=== PATIENT | male | born 1960 | race Caucasian/White ===

== ENCOUNTER 2022-02-22 10:01 | Outpatient (CLI) | payer OTHER, SELFPAY | END 2022-02-22 10:02 | disposition home or self-care (01) | LOC: NPINS 10:02 → LAB 10:36 | PROVIDERS: PCP Family Medicine; Visit Provider Orthopaedic Surgery Sports Medicine | DX: Z13.9 Encounter for screening, unspecified (principal) | CPT/HCPCS: 36415; 86850; 86900; 86901 ==

== ENCOUNTER 2022-02-24 10:46 | Day surgery (SDC) | payer OTHER, SELFPAY ==
[2022-02-24] VITALS (27 sets, daily range): BP systolic 89–125; BP diastolic 58–93; PULSE 51–74; RESP 12–20; TEMP 35.6–36.7; O2SAT 95–100; BMI 29.2
[2022-02-24] MEDS: LACTATED RINGERS 1000 ML 1,000 ML 100 ML IV (09:30)
[2022-02-24] MEDS: CEFAZOLIN 2 GM in 0.9 % SODIUM CHLORIDE Mini-bag 100 ML IVPB (11:49)
[2022-02-24] MEDS: SODIUM CHLORIDE 0.9 % (FLUSH) 10 ML SYRINGE IVF (11:59)
[2022-02-24] MEDS: ETHYL CHLORIDE 1 APPLICATION 1 APPLIC TOPICAL (11:59)
[2022-02-24] MEDS: ACETAMINOPHEN 500 MG TABLET 1000 MG PO ×3 (13:35→23:41)
[2022-02-24] MEDS: OXYCODONE (CR) 10 MG TAB.ER.12H PO (13:35)
[2022-02-24] MEDS: CELECOXIB 200 MG CAPSULE PO ×2 (13:35→21:27)
[2022-02-24] MEDS: MIDAZOLAM HCL 1 MG/ML inj IVP (13:40)
[2022-02-24] MEDS: fentaNYL 100 MCG/2 ML inj IVP (13:40)
--- NOTE | 2022-02-24 13:47 | SUR.PREOP ---
TIME?OUT:?1337, right hip PT/RN/MDA?VERIFICATION?OF?SURGICAL?SITE,?PROCEDURE,?AND?CONSENT OBTAINED?PRIOR?TO?INVASIVE?PROCEDURE.
--- NOTE | 2022-02-24 14:06 | CRLHL7_ITS ---
For Patients: As a result of the Cures Act, medical imaging exams and procedure reports are released immediately into your electronic medical record. You may view this report before your referring provider. If you have questions, please contact your health care provider. Indication: Hip replacement surgery Technique: AP hip fluoroscopic image. Fluoroscopy time 53.1 seconds. Findings/Impression: Hardware from a right total hip arthroplasty is in satisfactory position. Dictated by Ruddy Rodriguez MD @ 02/25/2022 10:02:18 AM (Electronically Signed)
[2022-02-24] MEDS: TRANEXAMIC ACID 100 MG/ML INJ 1000 MG IV (14:49)
--- NOTE | 2022-02-24 14:49 | P.NB_ITS ---
Nerve Block Nerve Block Date Seen: 02/24/22 Type of block requested by surgeon for post-operative analgesia: ISAIAH/LFCN Side: right Time out performed: Yes Verification of patient name: Yes Verification of date of : Yes Site marking: site marked Name of person performing procedure: Bladimir Continuous monitoring Was continuous monitoring of O2 sat, B/P, monitor car operator, recorded every 15 minutes?: Yes Procedure Checklist: sterile prep, needles and gloves Ultrasound guided. Images saved: Yes Medications given in 5ml increments after negative aspiration: Ropivicaine %: 0.5 mL: 30 Needle gauge: 20 Decadron (mg): 10 Precedex (mcg): 25 Patient tolerated procedure well: Yes Additional comments: Needle noted adjacent to nerve Block Charges Block Charge (with Pro Fee): Other Periph Nerve Block Use of Ultrasound Machine for Block: Yes- US Guidance/pain block
--- NOTE | 2022-02-24 16:32 | P.ORPRC_ITS ---
Procedure Note Date of procedure: 02/24/22 Procedure: PREOPERATIVE DIAGNOSIS: 1. Right hip osteoarthritis, severe, primary POSTOPERATIVE DIAGNOSIS: 1. Right hip osteoarthritis, severe, primary PROCEDURE: 1. Right total hip arthroplasty-anterior approach 2. 70957 - intraoperative fluoroscopy up to 1 hour. SURGEON: Kevin Hooper MD. ETHANOL OPERATIONS MANAGER: Gonzalo Smith PA-C; URMILA Trujillo - Of note, a skilled email marketing assistant was critical for this case to aid in patient positioning, tissue retraction, limb manipulation/positioning, and closure. ANESTHESIA: Spinal anesthetic EBL: 300 mL IMPLANTS: DePuy J&J uncemented total hip [place] cup size 52, hole eliminator, +4 neutral liner Actis stem, standard offset, size 7 +5 mm ceramic 36 mm head COMPLICATIONS: None evident INDICATIONS: The patient is a pleasant 61-year-old male who has experienced severe right hip pain and difficulty bearing weight. Workup included x-rays which revealed severe osteoarthrosis in the hip. Given the deformity, the dysfunction, and the pain, as well as the failure of nonoperative management, recommendation was made for surgery. FINDINGS: Full-thickness chondral loss throughout the femoral head broadly. Large effusion upon entering the joint. Osteophytes around the perimeter of the acetabulum noted as well. DESCRIPTION OF PROCEDURE: Following a thorough discussion of risks, benefits, and alternatives consent was obtained and the right hip was marked. The patient was brought to the operating room and placed supine on the operating table. Induction of anesthesia was undertaken. 2 g IV Ancef and 1 g tranexamic acid was administered within 1 hr of incision preoperatively. Proper time-out was performed identifying proper patient, site, procedure. The operative extremity was prepped and draped in the appropriate sterile fashion using ChloraPrep after the patient was positioned on the [place] table with head in neutral alignment and all bony prominences well padded. C-arm fluoroscopic imaging was utilized to confirm proper pelvis rotation and position, and to get true AP films of both the contralateral left, and the affected right hip. This is for comparison. A longitudinal incision was made starting approximately 1 cm distal to the ASIS, and 3-4 cm lateral. The incision was extended distally aiming toward the lateral border the patella. Sharp incision through skin and bovie cautery through the subcutaneous tissue allowed identification of the TFL fascia. This was sharply divided, and the fascia bluntly released from the muscle fibers as we dissected medial. Upon coming to the medial border, we were able to retract the TFL laterally, and penetrated the deeper fascia and identify the crossing circumflex vessels. These were ligated/cauterized. The rectus was elevated from the capsule, and retractors placed laterally and medially along the femoral neck to help with visualization of the capsule. We then performed an inverted T capsulotomy. The capsule was tagged for later repair. Retractors were placed inside the capsule. The femoral neck was visualized after releasing medially down to the lesser trochanter, along the saddle laterally, and up onto the acetabulum. The femoral neck cut was made in line with our preoperative templating. The head was removed in a single piece, and sized. We turned our attention to acetabular preparation. Initially, the labrum was resected from around the perimeter, the pulvinar was excised, allowing us to visualize the false wall. We started the reaming with a 43 mm reamer. This was medialized down to the true wall. We then enlarged our reamers sequentially up to one size less than the selected cup size. We trialed at the same size and found it to have an excellent fit. The selected cup was then opened, inserted, and impacted in line with the goal of 40? of abduction, and 20-25? of anteversion. This was confirmed on C-arm fluoroscopic imaging to be in the appropriate/goal position. Once the cup was placed we placed a hole eliminator and a liner consistent with preop planning. Attention was turned to the femoral preparation. The limb was extended, externally rotated, and adducted. The posteromedial capsule was released, as retractors were placed allowing excellent access to the proximal femur. Initial ly a box bender was followed by canal finder followed by various broaches. We broached sequentially up to the size noted above, found it to have excellent rotational control, and trialing various heads and necks, revealed that appropriate neck offset, and the above noted head size provided the greatest stability, and mormonism of length, and offset. C-arm fluoroscopic imaging confirmed position of the stem, as well as leg lengths, which were compared with the pre procedure all fluoroscopic images. Trial implants were removed, the real femoral stem inserted, as was the appropriate head. After reducing, the leg was placed through range of motion and stability was confirmed anterior, posterior, and lateral. A 3 min Betadine soak was then performed, and thorough irrigation with normal saline followed. Closure of the capsule was performed with #1 PDS. Bleeding was confirmed to be controlled at this stage, and the TFL fascia was closed with #0 strata fix. Subcutaneous, and subcuticular closure was performed with 2-0 Vicryl and 4-0 Monocryl, respectively. Dressings were applied, and the patient was awoken from anesthesia and transferred the PACU in stable condition. A skilled email marketing assistant was critical for this case to aid in patient positioning, tissue retraction, acetabular and proximal femoral exposure, limb manipulation/positioning, dislocation/relocation, patient safety, and closure. PLAN: 1. Weight bear as tolerated operative extremity. 2. 23 hr perioperative antibiotics. 3. Ice. 4. PT/OT consults for ambulation assistance/mobility education. 5. Social work consult for discharge planning. 6. DVT prophylaxis with at SCDs, Chuckie Hose, and Xarelto x5 days followed by aspirin for a total of 1 month..
--- NOTE | 2022-02-24 17:04 | W.ANESCHARGE ---
Anesthesia Charges Start Date/Time Anesthesia Start Date: 02/24/22 Anesthesia Start Time: 14:32 Stop Date/Time Anesthesia Stop Date: 02/24/22 Anesthesia Stop Time: 16:55 Summary Emergency: No
--- NOTE | 2022-02-24 17:24 | CRLHL7_ITS ---
For Patients: As a result of the Cures Act, medical imaging exams and procedure reports are released immediately into your electronic medical record. You may view this report before your referring provider. If you have questions, please contact your health care provider. Indication: RIGHT HIP MARCELLA Technique: AP pelvis and lateral view right hip Findings/Impression: Hardware from a right total hip arthroplasty is in satisfactory position. Bone alignment is normal. No sign of acute fracture. Postop changes are within normal limits. Dictated by Ruddy Rodriguez MD @ 02/25/2022 10:16:23 AM (Electronically Signed)
[2022-02-24] MEDS: LACTATED RINGERS 1000 ML 1,000 ML 75 ML IV (17:58)
[2022-02-24] MEDS: OXYCODONE 5 MG TABLET PO ×2 (21:29→23:40)
[2022-02-24] MEDS: SENNOSIDES 1 TAB TABLET 2 TAB PO (21:29)
--- NOTE | 2022-02-24 23:22 | PC.NURSE ---
Pt. up to floor at 1745, alert and oriented x4, at bedside. Pt. denies any N/V. VSS stable. Pt. rates pain 0-1 no pain meds needed until 2100 PRN oxy administered for 4/10 pain. Dressing to right hip C/D/I, active ice to op site. Plexi pulses, and bilateral teds applied. Pt. ordered dinner and tolerated well.
--- NOTE | 2022-02-24 23:51 | P.IMCN_ITS ---
Date of Consult Patient: Mark Patient Consult date: 02/24/22 Requesting Physician: Orthopedics Primary Care Provider: Merrill Denis MD Consult Narrative Reason for consult: Postop management of hypertension, gout Narrative: Merrill Sharma is a 61 year old man with end-stage left hip osteoarthritis who undergoes elective left total hip arthroplasty today, uneventful, without obvious complications. I review his preoperative assessment. No major concerns. Review of Systems Status of ROS: Reports: 10 or more systems reviewed and unremarkable except as noted in History and below Narrative: No angina, anginal equivalent, syncope, near syncope, nausea, vomiting, palpitations, diaphoresis, cough, dyspnea at rest, paroxysmal nocturnal dyspnea, orthopnea, or claudication. Blood pressure is generally well controlled on his current regimen. No complications from this regimen. Last time he had a kidney stone was 1981. Previous to that he also had a kidney stone 1980. Has intermittent episodes of gout in his right 1st MTP, treats with 2 [id number] ibuprofen and it resolves fairly quickly. No recent fevers, rigors, diaphoresis. No major travel or trauma. Has not had COVID-19 as of late. Bowels generally well controlled. Immediately he is still having difficulties evacuating his bladder postoperatively. Will need to continue to monitor this. [facility] Medical History DDD (degenerative disc disease), lumbosacral Gilbert's syndrome Gout Hyperlipidemia Hypertension Kidney stone Lumbar degenerative disc disease Osteoarthritis of right hip Family History Father Myocardial infarction Mother Dementia Social History Smoking Status: Never smoker Do you use any of these nicotine containing products: None How often do you have a drink containing alcohol: 4 or more times a week Alcohol type: beer and hard liquor How many standard drinks containing alcohol do you have on a typical day: 1 or 2 How often do you have six or more drinks on one occasion: Less than monthly AUDIT-C Alcohol total score: 5 Non-prescribed substance use: denies use Caffeine: Yes (soda 1/day or coffee, 1 cup/day) Meds Home Medications and Allergies Home Medications Medication Instructions Recorded Confirmed Type atorvastatin 20 mg tablet 20 mg PO HS 02/24/22 02/24/22 History lisinopril 10 1 tab PO DAILY 02/24/22 02/24/22 History mg-hydrochlorothiazide 12.5 mg tablet Allergies Allergy/AdvReac Type Severity Reaction Status Date / Time No Known Drug Allergies Allergy Verified 02/04/22 10:23 Exam Narrative: Exam Narrative: No acute distress. Appears comfortable. Alert, oriented to self, place, time, situation. Friendly, cooperative, articulate. Thoughtful and insightful. Mood and affect are congruent. Vision and hearing are grossly normal. Moves all 4 extremities. Lungs are clear to auscultation. Heart tones with regular rhythm, normal S1-S2, without murmur, gallop, or rub. Abdomen with active bowel sounds, soft, nontender. Extremities without edema. Const: Vital Signs, click to edit/add: Vital Signs - 24 hr 02/24/22 11:29 02/24/22 13:40 02/24/22 13:50 Temperature 97.8 F Pulse Rate 74 74 63 Pulse Rate [Right Pulse Oximeter] Respiratory Rate 20 20 16 Blood Pressure 119/78 121/79 111/71 Blood Pressure [Le ft Arm] Pulse Oximetry 98 100 100 Oxygen Delivery Me thod Room Air Nasal Cannula Nasal Cannula Oxygen Flow Rate 3 3 02/24/22 14:01 02/24/22 16:45 02/24/22 16:50 Temperature 97.8 F 97.9 F Pulse Rate 64 51 L 64 Pulse Rate [Right Pulse Oximeter] Respiratory Rate 16 16 18 Blood Pressure 111/73 98/62 89/66 L Blood Pressure [Le ft Arm] Pulse Oximetry 99 97 97 Oxygen Delivery Me thod Nasal Cannula Room Air Room Air Oxygen Flow Rate 3 02/24/22 17:00 02/24/22 17:05 02/24/22 17:10 Temperature Pulse Rate 58 L 62 58 L Pulse Rate [Right Pulse Oximeter] Respiratory Rate 16 16 16 Blood Pressure 99/62 98/59 L 99/64 Blood Pressure [Le ft Arm] Pulse Oximetry 95 97 96 Oxygen Delivery Me thod Room Air Room Air Room Air Oxygen Flow Rate 02/24/22 17:15 02/24/22 17:20 02/24/22 17:26 Temperature Pulse Rate 62 62 66 Pulse Rate [Right Pulse Oximeter] Respiratory Rate 16 12 12 Blood Pressure 98/58 L 98/65 101/63 Blood Pressure [Le ft Arm] Pulse Oximetry 96 97 97 Oxygen Delivery Me thod Room Air Room Air Room Air Oxygen Flow Rate 02/24/22 17:31 02/24/22 17:35 02/24/22 17:45 Temperature 96.4 F L Pulse Rate 62 62 58 L Pulse Rate [Right Pulse Oximeter] Respiratory Rate 14 14 16 Blood Pressure 103/69 109/65 Blood Pressure [Le ft Arm] 103/80 Pulse Oximetry 96 95 Oxygen Delivery Me thod Room Air Room Air Room Air Oxygen Flow Rate 02/24/22 18:00 02/24/22 18:15 02/24/22 17:54 Temperature 96.1 F L 96.4 F L 96.4 F L Pulse Rate Pulse Rate [Right Pulse Oximeter] 61 53 L 58 L Respiratory Rate 16 16 16 Blood Pressure Blood Pressure [Le ft Arm] 100/68 110/69 103/80 Pulse Oximetry 95 99 98 Oxygen Delivery Me thod Room Air Room Air Room Air Oxygen Flow Rate 02/24/22 19:00 02/24/22 18:30 02/24/22 18:45 Temperature 97.6 F 96.4 F L 96.4 F L Pulse Rate Pulse Rate [Right Pulse Oximeter] 58 L 62 56 L Respiratory Rate 16 16 16 Blood Pressure Blood Pressure [Le ft Arm] 105/66 111/69 107/69 Pulse Oximetry 99 96 99 Oxygen Delivery Me thod Room Air Room Air Room Air Oxygen Flow Rate 02/24/22 19:15 02/24/22 19:30 02/24/22 20:00 Temperature 96.4 F L 96.4 F L 96.4 F L Pulse Rate Pulse Rate [Right Pulse Oximeter] 58 L 61 57 L Respiratory Rate 16 16 16 Blood Pressure Blood Pressure [Le ft Arm] 105/66 108/93 H 117/78 Pulse Oximetry 99 96 97 Oxygen Delivery Me thod Room Air Room Air Room Air Oxygen Flow Rate 02/24/22 21:00 02/24/22 22:00 02/24/22 23:00 Temperature 97.6 F 97.6 F 97.6 F Pulse Rate Pulse Rate [Right Pulse Oximeter] 64 63 63 Respiratory Rate 16 16 16 Blood Pressure Blood Pressure [Le ft Arm] 125/78 120/74 113/85 Pulse Oximetry 98 98 97 Oxygen Delivery Me thod Room Air Room Air Room Air Oxygen Flow Rate Assessment and Plan Assessment and plan (1) Osteoarthritis of right hip: Problem comment: Severe Status: Acute (2) Hypertension: Status: Acute (3) Gout: Status: Acute (4) Lumbar degenerative disc disease: Problem comment: most severe at L5-S1 Status: Acute Plan 1. Reviewed my impressions with the patient. 2. Continue with supportive efforts. 3. Agree with perioperative prophylactic antibiotics. 4. Agree with postoperative venous thromboembolism prophylaxis. 5. Will follow with Orthopedic surgery while patient is in hospital.
[2022-02-25 03:00] VITALS: BP 120/82; PULSE 75; RESP 16; TEMP 36.7; O2SAT 97
[2022-02-25] MEDS: OXYCODONE 5 MG TABLET PO ×3 (03:16→12:00)
[2022-02-25] MEDS: ACETAMINOPHEN 500 MG TABLET 1000 MG PO (05:59)
--- NOTE | 2022-02-25 06:34 | PC.NURSE ---
[id number] Per pt, did not sleep well during night, rated pain 1-2/10 during night, relief with prn and scheduled pain medication and ice to R hip. up to BR with walker, GB, sba, tolerates activity very well. Dressing to R hip C/D/I
[2022-02-25 07:06] LABS: Hematocrit 39.5 % (37.0-53.0); Immature Granulocytes Abs Auto 0.03 K/uL (0.00-0.30); Lymphocytes Percent Auto 2.9 % (20-44); Mean Corpuscular HGB Conc 35 gm/dL (32-36); Mean Corpuscular Hemoglobin 30 pg (26-34); Mean Corpuscular Volume 84 fL (80-100); Monocytes Percent Auto 4.6 % (0.0-11.0); Neutrophils Percent Auto 92.2 % (42.0-72.0); Platelet Count* 155 K/uL (140-440); RDW Coefficient of Variation % 12.2 % (11.5-15.5); Red Blood Count 4.71 m/uL (4.30-5.90)
[2022-02-25 07:21] LABS: Slide Review Reflex No
[2022-02-25 07:33] LABS: Sodium* 135 mmol/L (135-149)
[2022-02-25 07:36] LABS: Blood Urea Nitrogen* 21 mg/dL (7-30); Est. Creatinine Clearance* 68.23; Estimated Glomerular Filt Rate 85 ml/min; Potassium* 4.1 mmol/L (3.6-5.1)
[2022-02-25 07:45] VITALS: BP 112/67; PULSE 72; RESP 16; TEMP 37.1; O2SAT 96
[2022-02-25] MEDS: CEFAZOLIN 2 GM in 0.9 % SODIUM CHLORIDE Mini-bag 100 ML IVPB (08:10)
[2022-02-25] MEDS: RIVAROXABAN 10 MG TABLET PO (08:39)
[2022-02-25] MEDS: hydroCHLOROthiazide 12.5 MG CAPSULE PO (08:39)
[2022-02-25] MEDS: lisinopriL 10 MG TABLET PO (08:39)
[2022-02-25] MEDS: CELECOXIB 200 MG CAPSULE PO (08:40)
[2022-02-25] MEDS: SENNOSIDES 1 TAB TABLET 2 TAB PO (08:40)
--- NOTE | 2022-02-25 09:11 | PM.ORPN ---
Subjective Subjective Date Seen: 02/25/22 Principal diagnosis: Status postop day 1 right total hip arthroplasty - anterior approach Interval history: Patient reports doing well. No acute events over night. Pain managed with scheduled /PRN medications and ice. DVT prophylaxis rivaroxaban, bilateral knee high Chuckie stockings, and SCDs. Denies fevers, chills, aches, N/V, CP, SOB/EMERSON, tachycardia, or lightheadedness. Reports poor night of sleep. He is having no radicular pain right lower extremity. Ortho Exam Narrative Exam Narrative: -Patient appears comfortable in recliner; no apparent acute distress -Alert and oriented times 3 -Operative hip mild swelling; soft tissues supple; no obvious erythema. No ecchymosis. Warmth appropriate; some mild pain to touch lateral thigh -Surgical dressing clean, dry, intact; no obvious drainage, no erythematous streaking peripheral to the bandage -Bilateral calves soft and supple; no significant swelling, edema, tenderness, erythema, discoloration, warmth, or palpable cords -2+ DP/PT pulses, intact dermatomes and myotomes distally (5/5 strength). No numbness about the lateral femoral cutaneous nerve distribution. Const Vital Signs, click to edit/add: Vital Signs - 24 hr 02/24/22 11:29 02/24/22 13:40 02/24/22 13:50 Temperature 97.8 F Pulse Rate 74 74 63 Pulse Rate [Right Pulse Oximeter] Respiratory Rate 20 20 16 Blood Pressure 119/78 121/79 111/71 Blood Pressure [Left Arm] Pulse Oximetry 98 100 100 Oxygen Delivery Method Room Air Nasal Cannula Nasal Cannula Oxygen Flow Rate 3 3 02/24/22 14:01 02/24/22 16:45 02/24/22 16:50 Temperature 97.8 F 97.9 F Pulse Rate 64 51 L 64 Pulse Rate [Right Pulse Oximeter] Respiratory Rate 16 16 18 Blood Pressure 111/73 98/62 89/66 L Blood Pressure [Left Arm] Pulse Oximetry 99 97 97 Oxygen Delivery Method Nasal Cannula Room Air Room Air Oxygen Flow Rate 3 02/24/22 17:00 02/24/22 17:05 02/24/22 17:10 Temperature Pulse Rate 58 L 62 58 L Pulse Rate [Right Pulse Oximeter] Respiratory Rate 16 16 16 Blood Pressure 99/62 98/59 L 99/64 Blood Pressure [Left Arm] Pulse Oximetry 95 97 96 Oxygen Delivery Method Room Air Room Air Room Air Oxygen Flow Rate 02/24/22 17:15 02/24/22 17:20 02/24/22 17:26 Temperature Pulse Rate 62 62 66 Pulse Rate [Right Pulse Oximeter] Respiratory Rate 16 12 12 Blood Pressure 98/58 L 98/65 101/63 Blood Pressure [Left Arm] Pulse Oximetry 96 97 97 Oxygen Delivery Method Room Air Room Air Room Air Oxygen Flow Rate 02/24/22 17:31 02/24/22 17:35 02/24/22 17:45 Temperature 96.4 F L Pulse Rate 62 62 58 L Pulse Rate [Right Pulse Oximeter] Respiratory Rate 14 14 16 Blood Pressure 103/69 109/65 Blood Pressure [Left Arm] 103/80 Pulse Oximetry 96 95 Oxygen Delivery Method Room Air Room Air Room Air Oxygen Flow Rate 02/24/22 18:00 02/24/22 18:15 02/24/22 17:54 Temperature 96.1 F L 96.4 F L 96.4 F L Pulse Rate Pulse Rate [Right Pulse Oximeter] 61 53 L 58 L Respiratory Rate 16 16 16 Blood Pressure Blood Pressure [Left Arm] 100/68 110/69 103/80 Pulse Oximetry 95 99 98 Oxygen Delivery Method Room Air Room Air Room Air Oxygen Flow Rate 02/24/22 19:00 02/24/22 18:30 02/24/22 18:45 Temperature 97.6 F 96.4 F L 96.4 F L Pulse Rate Pulse Rate [Right Pulse Oximeter] 58 L 62 56 L Respiratory Rate 16 16 16 Blood Pressure Blood Pressure [Left Arm] 105/66 111/69 107/69 Pulse Oximetry 99 96 99 Oxygen Delivery Method Room Air Room Air Room Air Oxygen Flow Rate 02/24/22 19:15 02/24/22 19:30 02/24/22 20:00 Temperature 96.4 F L 96.4 F L 96.4 F L Pulse Rate Pulse Rate [Right Pulse Oximeter] 58 L 61 57 L Respiratory Rate 16 16 16 Blood Pressure Blood Pressure [Left Arm] 105/66 108/93 H 117/78 Pulse Oximetry 99 96 97 Oxygen Delivery Method Room Air Room Air Room Air Oxygen Flow Rate 02/24/22 21:00 02/24/22 22:00 02/24/22 23:00 Temperature 97.6 F 97.6 F 97.6 F Pulse Rate Pulse Rate [Right Pulse Oximeter] 64 63 63 Respiratory Rate 16 16 16 Blood Pressure Blood Pressure [Left Arm] 125/78 120/74 113/85 Pulse Oximetry 98 98 97 Oxygen Delivery Method Room Air Room Air Room Air Oxygen Flow Rate 02/24/22 23:00 02/24/22 23:00 02/25/22 03:00 Temperature 98.0 F 98.0 F Pulse Rate Pulse Rate [Right Pulse Oximeter] 68 75 Respiratory Rate 16 16 16 Blood Pressure Blood Pressure [Left Arm] 113/85 120/82 Pulse Oximetry 97 97 Oxygen Delivery Method Room Air Room Air Oxygen Flow Rate Assessment and Plan Assessment and plan (1) Status post total hip replacement, right: Problem details: POD 1 right total hip arthroplasty - anterior approach Status: Acute (2) Osteoarthritis of right hip: Problem details: Severe Status: Acute (3) Hypertension: Status: Acute (4) Gout: Status: Acute (5) Lumbar degenerative disc disease: Problem details: most severe at L5-S1 Status: Acute Plan - Complete 23 hour perioperative antibiotics - unfortunately order for perioperative antibiotics was canceled inadvertently. He will get 1 IV dose this morning. He received intraoperative antibiotics. Will not complete the full course of 3 bags, and no oral antibiotics for home. - PT/OT consult for education and assistance. - Social work consult for discharge planning - Prescribed analgesics as needed - DVT prophylaxis: Rivaroxaban, bilateral knee high Chuckie Hose stockings and SCDs - Anticipation is for discharge to home with spouse (02/25/2022) if the patient remains medically stable, pain is controlled, and they are safe with mobilization.
--- NOTE | 2022-02-25 09:16 | P.DS_ITS ---
DS: Providers Provider Date Seen: 02/25/22 Date of admission: med/surg recovery 02/24/22 Primary care physician: Merrill Denis MD Consults: 02/24/22 17:54 Consult to Occupational Therapy [CONS] Routine Comment: Reason(s) for OT Consult:: ADLs Prior to Discharge Any Restrictions?:: No Restrictions Comment: Consult to Physical Therapy [CONS] Routine Comment: Ambulate in the petty today Reason(s) for PT Consult:: Evaluate and Treat Any Restrictions?:: No Restrictions Comment: Nursing Activity Consult to Physician [CONS] Routine Comment: Consulting Provider: Hospitalists Has provider been notified: No Consult to Certified Rehabilitation Counselor [CONS] Routine Comment: Reason for Consult:: Discharge Planning Needs Attending Physician on discharge: Kevin Hooper MD Date of Discharge: 02/25/22 DS: Diagnosis Discharge Diagnosis (1) Status post total hip replacement, right: Status: Acute Problem details: POD 1 right total hip arthroplasty - anterior approach DS: Summary Hospital Course Hospital Course: The patient has a history of right hip osteoarthritis, primary, severe. After appropriate preoperative evaluation, the patient underwent right total hip arthroplasty. Postoperatively given anticoagulation for deep vein thrombosis prophylaxis. They progressed to PT/OT and were felt ready and prepared for discharged to home with appropriate pain medication and anticoagulation medications. Order for postoperative IV antibiotics was inadvertently canceled. Patient received 1 bag of IV antibiotics postoperative which should be sufficient for protection as he received intraoperative antibiotics as well, a 3 minute Betadine soak, and irrigation. Patient is not immunocompromised, and no history of diabetes. Status at Discharge Functional status at discharge: uses cane/walker Overall status at discharge: patient is progressing back to baseline Time Spent with Patient Time attestation: Total time spent providing and/or coordinating discharge services: Time spent: Less than 30 minutes Exam Const: Vital Signs, click to edit/add: Vital Signs - 24 hr 02/24/22 11:29 02/24/22 13:40 02/24/22 13:50 Temperature 97.8 F Pulse Rate 74 74 63 Pulse Rate [Right Pulse Oximeter] Respiratory Rate 20 20 16 Blood Pressure 119/78 121/79 111/71 Blood Pressure [Le ft Arm] Pulse Oximetry 98 100 100 Oxygen Delivery Me thod Room Air Nasal Cannula Nasal Cannula Oxygen Flow Rate 3 3 02/24/22 14:01 02/24/22 16:45 02/24/22 16:50 Temperature 97.8 F 97.9 F Pulse Rate 64 51 L 64 Pulse Rate [Right Pulse Oximeter] Respiratory Rate 16 16 18 Blood Pressure 111/73 98/62 89/66 L Blood Pressure [Le ft Arm] Pulse Oximetry 99 97 97 Oxygen Delivery Me thod Nasal Cannula Room Air Room Air Oxygen Flow Rate 3 02/24/22 17:00 02/24/22 17:05 02/24/22 17:10 Temperature Pulse Rate 58 L 62 58 L Pulse Rate [Right Pulse Oximeter] Respiratory Rate 16 16 16 Blood Pressure 99/62 98/59 L 99/64 Blood Pressure [Le ft Arm] Pulse Oximetry 95 97 96 Oxygen Delivery Me thod Room Air Room Air Room Air Oxygen Flow Rate 02/24/22 17:15 02/24/22 17:20 02/24/22 17:26 Temperature Pulse Rate 62 62 66 Pulse Rate [Right Pulse Oximeter] Respiratory Rate 16 12 12 Blood Pressure 98/58 L 98/65 101/63 Blood Pressure [Le ft Arm] Pulse Oximetry 96 97 97 Oxygen Delivery Me thod Room Air Room Air Room Air Oxygen Flow Rate 02/24/22 17:31 02/24/22 17:35 02/24/22 17:45 Temperature 96.4 F L Pulse Rate 62 62 58 L Pulse Rate [Right Pulse Oximeter] Respiratory Rate 14 14 16 Blood Pressure 103/69 109/65 Blood Pressure [Le ft Arm] 103/80 Pulse Oximetry 96 95 Oxygen Delivery Me thod Room Air Room Air Room Air Oxygen Flow Rate 02/24/22 18:00 02/24/22 18:15 02/24/22 17:54 Temperature 96.1 F L 96.4 F L 96.4 F L Pulse Rate Pulse Rate [Right Pulse Oximeter] 61 53 L 58 L Respiratory Rate 16 16 16 Blood Pressure Blood Pressure [Le ft Arm] 100/68 110/69 103/80 Pulse Oximetry 95 99 98 Oxygen Delivery Me thod Room Air Room Air Room Air Oxygen Flow Rate 02/24/22 19:00 02/24/22 18:30 02/24/22 18:45 Temperature 97.6 F 96.4 F L 96.4 F L Pulse Rate Pulse Rate [Right Pulse Oximeter] 58 L 62 56 L Respiratory Rate 16 16 16 Blood Pressure Blood Pressure [Le ft Arm] 105/66 111/69 107/69 Pulse Oximetry 99 96 99 Oxygen Delivery Me thod Room Air Room Air Room Air Oxygen Flow Rate 02/24/22 19:15 02/24/22 19:30 02/24/22 20:00 Temperature 96.4 F L 96.4 F L 96.4 F L Pulse Rate Pulse Rate [Right Pulse Oximeter] 58 L 61 57 L Respiratory Rate 16 16 16 Blood Pressure Blood Pressure [Le ft Arm] 105/66 108/93 H 117/78 Pulse Oximetry 99 96 97 Oxygen Delivery Me thod Room Air Room Air Room Air Oxygen Flow Rate 02/24/22 21:00 02/24/22 22:00 02/24/22 23:00 Temperature 97.6 F 97.6 F 97.6 F Pulse Rate Pulse Rate [Right Pulse Oximeter] 64 63 63 Respiratory Rate 16 16 16 Blood Pressure Blood Pressure [Le ft Arm] 125/78 120/74 113/85 Pulse Oximetry 98 98 97 Oxygen Delivery Me thod Room Air Room Air Room Air Oxygen Flow Rate 02/24/22 23:00 02/24/22 23:00 02/25/22 03:00 Temperature 98.0 F 98.0 F Pulse Rate Pulse Rate [Right Pulse Oximeter] 68 75 Respiratory Rate 16 16 16 Blood Pressure Blood Pressure [Le ft Arm] 113/85 120/82 Pulse Oximetry 97 97 Oxygen Delivery Me thod Room Air Room Air Oxygen Flow Rate DS: Data Data Completed and Pending Labs on day of discharge: Labs from last 24 hours 02/25/22 02/25/22 06:34 06:34 WBC 10.70 RBC 4.71 Hgb 14.0 Hct 39.5 MCV 84 MCH 30 MCHC 35 RDW Coeff of Radha 12.2 Plt Count 155 Neut % (Auto) 92.2 H Lymph % (Auto) 2.9 L [place] % (Auto) 4.6 Eos % (Auto) 0.0 Baso % (Auto) 0.0 Neut # (Auto) 9.90 H Lymph # (Auto) 0.30 L [place] # (Auto) 0.50 Eos # (Auto) 0.00 Baso # (Auto) 0.00 Abs Immat Gran (auto) 0.03 Sodium 135 Potassium 4.1 BUN 21 Creatinine 1.0 Estimated Creat Clear 68.23 Estimated GFR 85 Discharge Plan Discharge Disposition: Home, Self-Care Discharging Surgeon: Kevin Hooper Follow-Up Appointment: 1 week PA postop visit Prescriptions: New acetaminophen 500 mg capsule 500 - 1,000 mg PO Q6H MDD 4000mg PRNQty: 100 0RF aspirin 81 mg tablet,delayed release (DR/EC) 81 mg PO BID Qty: 50 0RF Rx Instructions: Medication to help prevent blood clots postoperatively; take TWICE daily. oxycodone 5 mg tablet 2.5 - 5 mg PO Q4-6H MDD 6 PRN (Reason: pain) Qty: 42 0RF Rx Instructions: Take as needed for postop pain: 2.5mg mild pain, 5mg moderate-severe pain; wean as tolerated. rivaroxaban 10 mg tablet 10 mg PO DAILY Qty: 4 0RF Rx Instructions: Medication for deep vein clot prevention post surgery. Complete this medication before starting Aspirin. sennosides-docusate sodium [Senna-S] 8.6-50 mg tablet 1 - 4 tab-cap PO BID PRN (Reason: constipation) Qty: 60 0RF Rx Instructions: Hold medication if experiencing loose stools. Continued atorvastatin 20 mg tablet 20 mg PO HS lisinopril-hydrochlorothiazide 10-12.5 mg tablet 1 tab PO DAILY Activity Level: Activity as Tolerated, Use Cane and Use Walker Discharge Diet: Regular Patient Instructions: Surgical Site Infections (DC) Forms: Work/Release Restrictions Follow-up: Merrill Denis MD [Primary Care Provider] - Discharge Orders: Discharge Order (Routine); Ordered 02/25/22 Ordered By: Gonzalo Smith
[2022-02-25 11:00] VITALS: RESP 16; O2SAT 95
--- NOTE | 2022-02-25 11:10 | PC.NURSE ---
Pt rating his pain in right hip 2 out of 10. IV Ancef 2gm dose infused IV this am. Pain managed with 5mg of oxycodone during am med pass. Eval by Gonzalo SIMEON, PT eval and OT eval. Pt and Janine verbalized understanding of d/c diagnosis, home meds, new prescriptions, f/up appt, pain management plan and symptoms to report urgently. Please see eMar for meds given prior to discharge.
--- NOTE | 2022-02-25 12:07 | PC.SOCIAL ---
Completed check in with pt. Pt states he has everything he needs at home. There are no noted concerns from pt.
--- NOTE | 2022-02-25 12:12 | PC.NURSE ---
D/C'ed via w/c with Janine as transportation at 12:05 pm.
--- NOTE | 2022-02-27 15:17 | SUR.PREOP ---
This nurse closed preoperative documentation based on nurse doing the documentation in that area of care and time to the OR.
== END 2022-02-25 15:54 | disposition home or self-care (01) ==
LOC: OR 10:47 → MEDSURG 10:51
PROVIDERS: PCP Family Medicine; Visit Provider Orthopaedic Surgery Sports Medicine
PROC: (CPT 27130; principal; 2022-02-24 13:15)
DX: M16.11 Unilateral primary osteoarthritis, right hip (principal); I10 Essential (primary) hypertension; M10.9 Gout, unspecified; M51.36 Other intervertebral disc degeneration, lumbar region; E78.5 Hyperlipidemia, unspecified
CPT/HCPCS: 27130; 01214; 36415; 64450; 73501; 73502; 76000; 76942; 82565; 84132; 84295; 84520; 85025; 97110; 97116; 97161; 97165; 97530; 97535; A9270; C1776; J0690; J1100; J2250; J2405; J2704; J3010; J7120

== ENCOUNTER 2022-03-17 08:30 | Outpatient (RCR) | payer OTHER, SELFPAY ==
--- NOTE | 2022-02-10 08:25 | PT.OPEX ---
[facility] [place] Outpatient Eval PT [facility] Outpatient Eval Start: 02/10/22 07:16 Freq: Status: Active Protocol: Document 02/10/22 07:17 SHAMEKA (Rec: 02/10/22 08:15 SHAMEKA [id number]) E-signed By Liudmila White PT Physical Therapy Outpatient Evaluation Insurance Information Insurance Name [employer] Medical Diagnosis Pre-Op Rt MARCELLA Surgical date pre-scheduled for 02/24/22 Treating Diagnosis Rt Hip pain, impaired self cares and work tasks Impaired ambulation tolerance Referring MD Dr Kevin Hooper Subjective Subjective Merrill reports having cont Rt hip pain for the past 3 years , no specific accident or incident causing pain. He has been seen previously in 2019 for pain. Exercises worked well for a while, but pain has returned. Opted for surgical repair at this time. Pain has been intermittent, but has been more prevalent the past 6 months. Mowing lawn, push/ pull and squatting, lifting has been pattern of activities causing increased pain. For pain control I have been taking ibuprofen. I also do stretches for hamstring and KTC. Rarely experience Rt LE N /T. Sometimes limp a bit and feel a buckling sensation - never have fallen though. 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 Lt is WNL and painfree Knee AROM is WNL and painfree SLR: hip at 90 deg, lacking 20 deg full knee ext with hypertonicity at mukesh hamstrings. Hip IR: Lt 0-12 deg, Rt lacking neutral range by 3 deg . Lacking mukesh hip EXT: achieves neutral due to mukesh hip Flex hypertonicity Strength Mukesh hip EXT 4/5, other MMT were normal Palpation Pain at post hip/buttock, ant hip/hip flex. Hypertonicity at hip flex, rectus femoris, glut med/max and piriformis. Hamtring and gastroc tightness Balance & Gait 10+ second SLS mukesh Slight reduction in WB Rt LE Posture Slight flattening of lumbar spine Assessment Assessment/Impression 61 yo was referred to PT pre- op Rt MARCELLA. He arrived to dept via IND ambulation without any AD. He presents with slightly flattened lumbar spine, minimal reduction in WB/stance phase of gait Rt involved LE. Good heel to toe gait though. Reduced toe push off. Significant tightness of Rt hip flex and rectus femoris, reducing hip EXT AROM to just neutral. Significant impairment in Rt hip IR - unable to even achieve neutral , lacking 3 deg with PROM. He was able to perform all of the exercises for post-op MARCELLA. We completed entire post-op HEP, educated in use of ice/cold pack and Fall Prevention education. A/D stairs and use of WW. His surgery is scheduled for 02/24/22 and 2 consecutive weeks. Thank you for this referral. Plan of Care Rehabilitation Potential Good Physical Therapy Goals In One Pre-Op MARCELLA visit, we will complete the followin. Evaluation pre-op completed 02/10/22. MET 2. Educate in Post-Op Home safety, and Fall Prevention. MET 3. Educate in MARCELLA post-op HEP, given HO and executed in PT. MET 4. Educate in/given HO for Understanding Recovery and Pain control/Wound care. MET Coordination/Communication With Referral Source Treatment Plan/Direct Interventions Gait Training,Ice/Cold/ Vasopneumatic,Joint Mobilization,Manual Therapy, Therapeutic Activities, Therapeutic Exercises Frequency/Duration 1X/Wk for 12 visits Patient Will Be Discharged From Therapy Completion of LTG(s),Skills Plateau,Independent w/HEP, Independently Progressing Discharge Plan Comments Progress with gait, balance, gait training and progressive stretch/strength HEP per physician f/u and protocol. He will be seen again for Re- Evaluation post-op. New goals will be established at that time. Evaluation Billing Untimed Code Treatment Minutes 25 Complexity Moderate Certification Information Physician Comment/Change Comment or Changes Physician NPI Number #
== END 2022-05-06 15:02 | disposition home or self-care (01) ==
PROVIDERS: PCP Family Medicine; Visit Provider Orthopaedic Surgery Sports Medicine
DX: M16.11 Unilateral primary osteoarthritis, right hip (principal); Z51.89 Encounter for other specified aftercare
CPT/HCPCS: 97110; 97140; 97162; 97164